=== PATIENT | male | born 1945 ===

== ENCOUNTER 2023-06-01 10:03 | Emergency (ER) | payer SELFPAY ==
[2023-06-01] VITALS (21 sets, daily range): BP systolic 154–177; BP diastolic 84–127; PULSE 74–97; RESP 15–32; TEMP 36.6; O2SAT 93–99
--- NOTE | 2023-06-01 10:00 | RT.EKG_ITS ---
APPROVED REPORT Exam: Resting ECG Reason for Exam: dyspnea Patient Location: E HR:84 bpm ECG Measurements Heart Rate 84 AXIS OK 149 P 68 QRSd 77 QRS -17 QT 352 T 135 QTc 416 Conclusion Sinus rhythm...normal P axis, V-rate 60- 99 Atrial premature complex...SV complex w/ short R-R interval Repol abnrm suggests ischemia, anterolateral...ST dep, T neg, I aVL V2-V6
[2023-06-01 10:23] LABS: Abs Immature Grans 0.12 10^3/uL (0.0-0.06); Absolute Lymphocyte Count 1.31 10^3/uL (1.2-3.4); Basophils % 0.4; Eosinophils % 0.1; HGB 14.3 g/dL (13.5-17.5); Immature Grans % 0.8; Lymphocytes % 9.2; MCH 30.4 pg (27.0-33.0); MCHC 34.9 % (32.0-36.0); MCV 87 fL (80-95); Neutrophils % 69.5; Platelet Count 317 10^3/uL (130-400); RDW 16.6 % (11.8-14.1); WBC 14.22 10^3/uL (4.4-10.8)
[2023-06-01 10:29] LABS: Absolute Basophil Count 0.06 10^3/uL (0.0-0.2); Absolute Eosinophil Count 0.01 10^3/uL (0.0-0.7); Absolute Monocyte Count 2.84 10^3/uL (0.1-0.8); Absolute Neutrophil Count 9.88 10^3/uL (1.2-6.7)
[2023-06-01 10:37] LABS: Diff Comment Diff Reviewed; RBC Morphology Normal
--- NOTE | 2023-06-01 10:47 | W.ED.GENAD ---
Discharge Plan Disposition Patient Disposition: Home Condition: Stable Discharge Details Clinical Impression: Ascites, Transaminitis, Hyperbilirubinemia, Hyponatremia, Cancer, metastatic to liver, Cancer, metastatic to bone ED Provider: Gigi Shah Home Meds and New Rx's Prescriptions: New ondansetron 4 mg tablet,disintegrating 4 mg PO Q8H PRNQty: 30 0RF No Action sennosides [senna] 8.6 mg tablet 8.6 - 17.2 mg PO BID PRN (Reason: constipation) Qty: 30 0RF Rx Instructions: transitioning to hospice lorazepam 1 mg tablet 1 mg PO Q4H PRN PRN (Reason: anxiety) Qty: 10 5RF Rx Instructions: hospice fentanyl 25 mcg/hr patch 72 hour 1 patch transdermal Q72H MDD 25mcg/hr Qty: 5 0RF Rx Instructions: Increased from 12x2 mcg patches hydromorphone 2 mg tablet 2 - 4 mg PO Q6H MDD 16mg PRN (Reason: pain) Qty: 10 0RF Rx Instructions: HOSPICE Discharge Instructions Instructions: Oxycodone, Rapid Release (By mouth) Additional Instructions: Please follow-up with palliative care clinic. A nuclear medicine specialist will see you in your home on Thursday afternoon. Should you wish to pursue additional diagnostics and treatment options, please follow-up with [facility]. Return to the ER immediately for any worsening or new concerning symptoms. Referrals: [facility] [Provider Group] [facility] [Provider Group] Discharge Data Discharge Date/Time-TO BE ENTERED AT DEPARTURE: 06/01/23 13:28 Medical Decision Making 1048?? 77-year-old male with no significant medical problems here with dyspnea on exertion, generalized weakness, unintentional weight loss, diffuse abdominal discomfort with irritable bowel and frequent diarrhea over the past few months. Patient has never had a colonoscopy. I am concerned about malignancy and acute congestive heart failure. Consider pulmonary embolism. EKG was reviewed and interpreted by me: Please report, sinus rhythm 84 bpm, ST depressions noted 1, 2, aVF and laterally V5 V6. 1233 -- CT of the abdomen pelvis was interpreted by radiology: Extensive metastatic disease to the liver with ascites, L5 lytic lesion, question: Mass ascending colon, incidentally noted left vertebral artery occlusion. Labs reviewed: Hyponatremia with sodium of 127 noted. LFTs elevated, bilirubin elevated 3.6. 1304 -- All results were discussed with the patient. Patient not interested in aggressive treatment at this time, does not wish to be hospitalized today. Patient request to be discharged home. He would like to be plugged in with palliative care and a primary care physician. I spoke with Ирина Ny NP, discussed case. She will followup with patient. Lab Data Lab results reviewed: Yes I reviewed the patient's lab results. Labs: Laboratory Tests Range/Units 06/01/23 06/01/23 10:15 11:00 WBC (4.4-10.8) 10^3/uL 14.22 H RBC (4.36-5.78) 10^6/uL 4.70 Hgb (13.5-17.5) g/dL 14.3 Hct (40.0-50.0) % 41.0 MCV (80-95) fL 87 MCH (27.0-33.0) pg 30.4 MCHC (32.0-36.0) % 34.9 RDW (11.8-14.1) % 16.6 H Plt Count (130-400) 10^3/uL 317 MPV (8.0-11.0) fL 10.0 Immature Gran % 0.8 Neutrophils % 69.5 Lymphocytes % 9.2 Monocytes % 20.0 Eosinophils % 0.1 Basophils % 0.4 Nucleated RBC % (0.0-0.3) % 0.0 Absolute Neutrophils (1.2-6.7) 10^3/uL 9.88 H Absolute Lymphocytes (1.2-3.4) 10^3/uL 1.31 Absolute Monocytes (0.1-0.8) 10^3/uL 2.84 H Absolute Eosinophils (0.0-0.7) 10^3/uL 0.01 Absolute Basophils (0.0-0.2) 10^3/uL 0.06 RBC Morphology Normal Sodium (136-145) mmol/L 127 L Potassium (3.5-5.1) mmol/L 4.7 Chloride (98-107) mmol/L 93 L Carbon Dioxide (21.0-32.0) mmol/L 22.0 Anion Gap (3-11) mmol/L 12.0 H BUN (7-18) mg/dL 21 H Creatinine (0.70-1.30) mg/dL 1.1 Est GFR (CKD-EPI 2020) (mL/min/1.73m2) 69.14 Glucose (74-106) mg/dL 119 H Calcium (8.5-10.1) mg/dL 9.9 Magnesium (1.8-2.4) mg/dL 2.4 Total Bilirubin (0.2-1.0) mg/dL 3.6 H AST (15-37) U/L 354 H ALT (16-63) U/L 302 H Alkaline Phosphatase (46-116) U/L 1180 H Troponin I (<or=60) ng/L < 50 NT-Pro-B Natriuret Pep (<300) pg/mL 257 Total Protein (6.4-8.2) g/dL 6.9 Albumin (3.4-5.0) g/dL 3.5 Urine Color (Yellow) Yellow Urine Clarity (Clear) Clear Urine pH (5-8) 5.0 Ur Specific [place] (1.005-1.025) 1.020 Urine Protein (Negative) mg/dL Trace H Urine Ketones (Negative) mg/dL Negative Urine Blood (Negative) Negative Urine Nitrite (Negative) Negative Urine Bilirubin (Negative) Small H Urine Urobilinogen (Up to 0.2) mg/dL 1.0 H Ur Leukocyte Esterase (Negative) Negative Urine RBC (0-2) HPF Negative Urine WBC (0-5) HPF Negative Ur Epithelial Cells (Negative) HPF Rare Urine Crystals (Negative) HPF Negative Urine Bacteria (Negative) HPF Negative Urine Casts (Negative) LPF 20-50 Fine Granular Urine Mucus (Negative) Trace Ur Culture Indicated? No Urine Glucose (Negative) mg/dL Negative HPI General Mode of arrival: ambulatory. Date/Time Provider Initiated Documentation: 06/01/23 10:09. Limitations to Documentation: no limitations. Information obtained by: patient. HPI Narrative: 77-year-old male with no significant medical history presents with chief complaint of weakness. Patient notes generalized weakness that started a few months ago and has worsened. He states he has had progressive dyspnea on exertion since May 05 which is now severe. He states he is unable to ascend stairs without being significantly winded. Patient notes symptoms of irritable bowel since January. He notes loss of appetite, weight loss, tingly legs and feet, swollen ankles and hemorrhoids over the past few months. Related Data Home Medications Medication Instructions Recorded Confirmed ondansetron 4 mg disintegrating 4 mg PO Q8H PRN #30 tabs 06/01/23 06/03/23 tablet sennosides 8.6 mg tablet (senna) 8.6 - 17.2 mg (1 - 2 x 8.6 mg) PO 06/03/23 06/03/23 BID PRN constipation #30 tabs lorazepam 1 mg tablet 1 mg PO Q4H PRN PRN anxiety #10 06/04/23 tabs fentanyl 25 mcg/hr transdermal 1 patch transdermal Q72H #5 ea 06/06/23 patch hydromorphone 2 mg tablet 2 - 4 mg (1 - 2 x 2 mg) PO Q6H PRN 06/06/23 pain #10 tabs Previous Rx's Medication Instructions Recorded ondansetron 4 mg disintegrating 4 mg PO Q8H PRN #30 tabs 06/01/23 tablet sennosides 8.6 mg tablet (senna) 8.6 - 17.2 mg (1 - 2 x 8.6 mg) PO 06/03/23 BID PRN constipation #30 tabs lorazepam 1 mg tablet 1 mg PO Q4H PRN PRN anxiety #10 06/04/23 tabs fentanyl 25 mcg/hr transdermal 1 patch transdermal Q72H #5 ea 06/06/23 patch hydromorphone 2 mg tablet 2 - 4 mg (1 - 2 x 2 mg) PO Q6H PRN 06/06/23 pain #10 tabs General Stated Complaint: GenMedical JAMIL: 3 Review of Systems All systems reviewed & are unremarkable except as noted in HPI and below Constitutional Constitutional: Reports as per HPI and Denies fever(s) Gastrointestinal Gastrointestinal: Reports as per HPI and Reports abdominal pain PFSH All Active Problems (Updated 06/03/23 @ 18:48 by Ирина Ny NP) Constipation (Acute) ACP (advance care planning) (Acute) Encounter for hospice care (Acute) Dyspnea (Acute) Cancer related pain (Acute) Cancer, metastatic to bone (Acute) Cancer, metastatic to liver (Acute) Hyponatremia (Acute) Hyperbilirubinemia (Acute) Transaminitis (Acute) Ascites (Acute) Social History Smoking/Tobacco Use Status: Never Smoking risk assessment performed?: Yes Alcohol Intake: current Alcohol Intake frequency: a few times a week Substance use type: does not use Housing: house Do you feel safe at home: Yes Do you feel safe in your relationship?: Yes Exam Const General: cooperative and no acute distress HENMT Mouth: mucous membranes dry Eyes Conjunctivae: normal conjunctivae Sclera: normal sclerae Neck Neck: trachea midline and supple Resp Effort & Inspection: tachypneic Auscultation: clear to auscultation bilaterally, no rales, no rhonchi and no wheezes Cardio Rate: regular rate and not tachycardic Rhythm: regular rhythm GI Inspection: distended Palpation: soft, not firm, no guarding, no masses, not rigid and tender (mild diffuse) Skin General skin exam: no rashes or lesions noted Neuro General: patient alert, patient awake and tone normal Extrem General: edema Psych Appearance: grossly normal Mental Status: mental status grossly normal Course Vital Signs Vital signs: Vital Signs Temperature 36.6 C 06/01/23 10:04 Pulse 97 H 06/01/23 10:04 Respiratory Rate 26 H 06/01/23 10:04 Blood Pressure 177/102 H 06/01/23 10:04 Pulse Oximetry 98 06/01/23 10:04 Temperature 36.6 C 06/01/23 10:09 Temperature Source Oral 06/01/23 10:09 Pulse 97 H 06/01/23 10:09 Respiratory Rate 18 06/01/23 10:09 Respiratory Effort Short of Breath 06/01/23 10:09 Blood Pressure 177/102 H 06/01/23 10:09 Blood Pressure Position Sitting 06/01/23 10:09 Pulse Oximetry 98 06/01/23 10:09 Oxygen Delivery Method Room Air 06/01/23 10:09 Oxygen Flow Rate 0 06/01/23 10:09 Pain Level 2 06/01/23 10:09 Lab/Test Results Lab/Test Results: Laboratory Tests Range/Units 06/01/23 10:15 WBC (4.4-10.8) 10^3/uL 14.22 H RBC (4.36-5.78) 10^6/uL 4.70 Hgb (13.5-17.5) g/dL 14.3 Hct (40.0-50.0) % 41.0 MCV (80-95) fL 87 MCH (27.0-33.0) pg 30.4 MCHC (32.0-36.0) % 34.9 RDW (11.8-14.1) % 16.6 H Plt Count (130-400) 10^3/uL 317 MPV (8.0-11.0) fL 10.0 Immature Gran % 0.8 Neutrophils % 69.5 Lymphocytes % 9.2 Monocytes % 20.0 Eosinophils % 0.1 Basophils % 0.4 Nucleated RBC % (0.0-0.3) % 0.0 Absolute Neutrophils (1.2-6.7) 10^3/uL 9.88 H Absolute Lymphocytes (1.2-3.4) 10^3/uL 1.31 Absolute Monocytes (0.1-0.8) 10^3/uL 2.84 H Absolute Eosinophils (0.0-0.7) 10^3/uL 0.01 Absolute Basophils (0.0-0.2) 10^3/uL 0.06 RBC Morphology Normal PAWSS Have you Been Recently Intoxicated or Drunk Within the Last 30 days?: No Have you Ever Experienced Previous Episodes of Alcohol Withdrawal?: No Have you ever Experienced Withdrawal Seizures?: No Have you ever Experienced Delirium Tremens(DT)s?: No Have you ever undergone Alcohol Rehabilitation Treatment (i.e, inpt ot outpatient treatment programs)?: No Have you ever Experienced Blackouts?: No Have you ever Combined Alcohol with other Downers within the last 90 days?: No Have you ever Combined Alcohol with any other Substance of Abuse during the last 90 days?: No Positive Blood Alcohol level on Presentation? [PCS.BAL]: No Evidence of Increased Autonomic Activity (i.e. HR>120, tremor, sweating, agitation, nausea)?: No Result: 0
[2023-06-01 10:50] LABS: ALT 302 U/L (16-63); AST 354 U/L (15-37); Albumin 3.5 g/dL (3.4-5.0); BUN 21 mg/dL (7-18); Bilirubin, Total 3.6 mg/dL (0.2-1.0); CREATININE 1.1 mg/dL (0.70-1.30); Calcium 9.9 mg/dL (8.5-10.1); Chloride 93 mmol/L (98-107); Estimated GFR 69.14 (mL/min/1.73m2); Glucose 119 mg/dL (74-106); Magnesium 2.4 mg/dL (1.8-2.4); NT-proBNP 257 pg/mL (<300); Potassium 4.7 mmol/L (3.5-5.1); Sodium 127 mmol/L (136-145); Total Protein 6.9 g/dL (6.4-8.2); Troponin I < 50 ng/L (<or=60)
[2023-06-01 10:53] LABS: Alkaline Phosphatase 1180 U/L (46-116)
[2023-06-01 11:23] LABS: Bilirubin Small (Negative); Blood Negative (Negative); Clarity Clear (Clear); Glucose Negative (Negative); Ketones Negative (Negative); Leukocyte Esterase Negative (Negative); Nitrite Negative (Negative)
[2023-06-01 11:33] LABS: Bacteria Negative HPF (Negative); Crystals Negative HPF (Negative); Epithelial Cells Rare HPF (Negative); Mucus Trace (Negative); RBC Negative HPF (0-2); WBC Negative HPF (0-5)
[2023-06-01 11:34] LABS: C & S Indicated? No
[2023-06-01] MEDS: Normal Saline - Diluent 50 ML VIAL IV (11:57)
[2023-06-01] MEDS: Omnipaque 350 MG/ML 500 ML BTL-Imaging package 100 ML IJ (11:58)
--- NOTE | 2023-06-01 12:05 | DI.CT_ITS ---
Exam(s) CT CHEST PE ABD PELVIS W EXAM: CT CHEST PE ABD PELVIS W CLINICAL HISTORY: shortness of breath, abdominal pain and fullness. TECHNIQUE: Imaging Protocol: Axial CT angiography was performed with multi-slice acquisition and mu lti-planar and/or 3D reconstructions. CONTRAST MATERIAL: Intravenous: Omnipaque 350contrast volume:100 mL COMPARISON: No exams were available for comparison FINDINGS: CHEST: Tracheobronchial tree: Patent where visualized. Pulmonary parenchyma: No consolidation or dominant measurable mass. No architectural distortion. Pulmonary Arteries: No evidence of filling defect to suggest pulmonary emboli. Mediastinum and [place]: No dominant adenopathy or fluid collection. The esophagus is unremarkable. Visualized thyroid gland: Unremarkable. Pleura: No effusion or pneumothorax. Heart: The heart is not dilated. Coronary artery calcifications are present. No pericardial effusion . Aorta: Thoracic aorta non-dilated. No evidence of dissection. There is occlusion of the left vertebr al artery. Atherosclerosis is present. Bones: Within normal limits for the patient's age. Soft tissues: Unremarkable. ABDOMEN: Liver: Normal density. There are numerable hypodensities in the liver consistent with metastatic dise ase. The liver is enlarged. Portal, Superior Mesenteric, and Splenic Veins: Unremarkable. Gallbladder and Biliary Tract: Gallbladder is contracted. Pancreas: Normal density, no abnormal calcifications or inflammatory process. Spleen: Normal. Adrenals: No masses seen. Kidneys: Normal size, contour and axis. No radiodense stones or obstructive uropathy. There are few t iny hypodensities in the kidneys. They are too small for further characterization but likely reflect small cysts. No follow-up is recommended. Abdominal Aorta: Abdominal portion non-dilated. Atherosclerosis. Bowel: There is diverticulosis of the colon but no evidence of acute diverticulitis. There is mild w all thickening seen in the ascending colon. There is no evidence of bowel obstruction. Appendix is unremarkable. Peritoneal Cavity: There is a small amount of pelvic ascites. No free air. Lymph Nodes: Within normal limits. Bones: Within normal limits for the patient's age. There is a lytic lesion in the posterior aspect o f the L5 vertebral body extending into the central spinal canal and causing central spinal canal sten osis which is mild. There may also be impingement on the left S1 nerve root. Soft Tissues: Unremarkable. PELVIS: Bladder: Symmetric distention, no gross wall thickening. Reproductive Organs: Unremarkable as visualized. Lymph Nodes: Within normal limits. Bones: Within normal limits. IMPRESSION: 1. No evidence pulmonary embolism, thoracic aortic dissection or aneurysm. 2. Findings of metastatic disease in the abdomen with innumerable hepatic masses, L5 lytic lesion and abdominal pelvic ascites. 3. The L5 metastasis causes some central spinal canal stenosis and there may also be impingement on t he left S1 nerve root. 4. Occlusion of the left vertebral artery. 5. There is question of thickening of the wall of the ascending colon. Given the findings in the abdo men and pelvis neoplasm should be considered. This may be due to underdistention or inflammation/infe ction. Barium enema and/or colonoscopy can be considered for further evaluation. 6. Findings were discussed with Dr. Shah in the emergency department at 12:30 p.m. on 06/01/2023. RADIATION DOSE DELIVERED: Total DLP DATA REPOSITORY: All CT scans at this facility are submitted to the National Radiology Data Registry (NRDR) Dose Index Registry (DIR) with the [employer] ([employer]). RADIATION OPTIMIZATION: All CT scans at this facility use at least one of these dose optimization te chniques: automated exposure control; mA and/or kV adjustment per patient size (includes targeted exa ms where dose is matched to clinical indication); or iterative reconstruction.
[2023-06-01 13:26] LABS: Source Nasal/Nares
[2023-06-01 13:56] LABS: COVID-19 PCR Negative (Negative)
== END 2023-06-01 13:28 | disposition home or self-care (01) ==
LOC: ER 13:46
PROVIDERS: Emergency Provider Student in an Organized Health Care Education/Training Program
DX: C79.51 Secondary malignant neoplasm of bone (principal); C78.7 Secondary malignant neoplasm of liver and intrahepatic bile duct; R00.1 Bradycardia, unspecified; R06.02 Shortness of breath; R18.8 Other ascites; R74.01 Elevation of levels of liver transaminase levels; E80.6 Other disorders of bilirubin metabolism; E87.1 Hypo-osmolality and hyponatremia
CPT/HCPCS: 71275; 74177; 80053; 87635; 93005; 99285; 81003; 81015; 83735; 83880; 84484; 85025; 93010; 99284